=== PATIENT | male | born 1945 | race Caucasian/White ===

== ENCOUNTER 2022-06-14 20:22 | Emergency (ER) | payer MEDICARE ==
[~2022-06-14 20:22] MED LIST: Iopamidol 370 76% 100 ML VIAL ONE
[2022-06-14] MEDS ORDERED: Sodium Chloride 0.9% 1,000 ML ONE ×2 (21:22→22:35)
[2022-06-14] MEDS ORDERED: Cefepime 2 GM VIAL ONE (21:30)
[2022-06-14] MEDS ORDERED: Vancomycin HCl 500 MG VIAL ONE (21:30)
[2022-06-14] MEDS ORDERED: Sodium Chloride 0.9% 100 ML ONE ×2 (21:31→21:46)
[2022-06-14] MEDS ORDERED: Sodium Chloride 0.9% 250 ML 250 ML ONE (21:31)
[2022-06-14 22:09] LABS: ALT (SGPT) 20 U/L (8-55); AST (SGOT) 13 U/L (5-34); Albumin 3.9 g/dL (3.4-4.8); Alkaline Phosphatase 86 U/L (40-110); Anion Gap 15 mmol/L (10-20); BUN (Urea Nitrogen) 15 mg/dL (8.4-25.7); Bilirubin, Total 0.5 mg/dL (0.2-1.2); CK (CPK) 51 U/L (30-200); Calc. Creatinine Clearance 0 mL/min (70-130); Carbon Dioxide 22 mmol/L (23-31); Chloride 104 mmol/L (98-107); Estimated GFR 59; Globulin 2.6 g/dL (2.4-3.5); Glucose 118 mg/dL (83-110); Lipase 15 U/L (8-78); Potassium 3.4 mmol/L (3.5-5.1); Protein, Total 6.5 g/dL (5.8-8.1); Sodium 138 mmol/L (136-145)
[2022-06-14 22:18] LABS: #Eosinphils 0.1 thou/uL (0.0-0.7); #Lymphocytes 0.3 thou/uL (1.20-3.40); #Monocytes 0.4 thou/uL (0.11-0.59); #Neutrophils 5.9 thou/uL (1.40-6.50); %Basophils 0.4 % (0.0-1.0); %Eosinophils 1.1 % (0.0-10.0); %Lymphocytes 3.9 % (21.0-51.0); %Neutrophils 88.6 % (42.0-75.0); Hemoglobin 13.6 g/dL (14.0-18.0); Mean Corpuscular HGB CONC 33.4 g/dL (32.0-36.0); Mean Corpuscular Hemoglobin 29.4 pg (27.0-31.0); Mean Platelet Volume 7.8 fL (7.4-10.4); Platelet Count 104 thou/uL (130-400); Platelet Morphology Comment Appears Decreased; RBC Distribution Width 11.3 % (11.5-14.5); RBC Morphology Normal; Red Blood Cell (RBC) Count 4.62 mill/uL (4.70-6.10); White Blood Cell (WBC) Count 6.6 thou/uL (4.8-10.8)
[2022-06-14] MEDS ORDERED: Ibuprofen 800 MG TAB ONE (22:35)
[2022-06-14 22:48] LABS: SARS-CoV-2 NAA Rapid Test DETECTED (NotDetected)
[2022-06-15 00:49] LABS: Bilirubin Negative (Negative); Blood, Urine Negative (Negative); Clarity Clear (Clear); Glucose, Urine (Dipstick) Negative (Negative); Ketone, Urine Negative (Negative); Leukocyte Negative (Negative); Nitrite Negative (Negative); Protein, Urine (Dipstick) Negative (Neg-Trace); Specific Gravity, Urine 1.025 (1.005-1.030); Urobilinogen 0.2 mg/dL (Less than 2); pH, Urine 5.5 (5.0-9.0)
[2022-06-15 01:21] LABS: Lactic Acid 1.2 mmol/L (0.5-2.2)
[2022-06-15] MEDS ORDERED: Sodium Chloride 0.9% 1,000 ML ONE (01:34)
== END 2022-06-15 02:15 | disposition short-term general hospital (02) ==
LOC: MADERS 20:22
DX: U07.1 COVID-19 (principal); I10 Essential (primary) hypertension; E78.00 Pure hypercholesterolemia, unspecified; Z86.73 Personal history of transient ischemic attack (TIA), and cerebral infarction without residual deficits; Z79.899 Other long term (current) drug therapy
CPT/HCPCS: 71045; 71275; 80053; 81003; 82550; 83605; 83690; 84484; 85025; 87040; 87086; 93005; 96365; 96366; 96367; J0692; J3370; J3490; J7050; Q9967